=== PATIENT | female | born 1970 | race Caucasian/White ===

== ENCOUNTER 2022-12-02 21:02 | Emergency (ER) | payer OTHER, SELFPAY ==
[2022-12-02 21:05] VITALS: BP 117/62; PULSE 109; RESP 16; TEMP 36.3; O2SAT 99
[2022-12-02 21:12] VITALS: BP 114/80; PULSE 113; RESP 16; O2SAT 97
--- NOTE | 2022-12-02 21:17 | PC.NURSE ---
pt has decided to leave AMA. pt does not want to wait or have lab work done. Pt sts, I have 5 dogs to take care of.
== END 2022-12-02 21:32 | disposition left against medical advice (07) ==
LOC: ANHED 21:28
PROVIDERS: Emergency Provider Physician Assistant
DX: R22.41 Localized swelling, mass and lump, right lower limb (principal)
CPT/HCPCS: 99199